=== PATIENT | female | born 1960 ===

== ENCOUNTER 2022-01-05 20:17 | Outpatient (REF) | payer MEDICAID, SELFPAY ==
[2022-01-05 19:06] LABS: Anion Gap 7.1 mmol/L (3-11); BUN 18 mg/dL (7-18); CO2 27.9 mmol/L (21.0-32.0); CREATININE 1.2 mg/dL (0.55-1.02); Calcium 9.2 mg/dL (8.5-10.1); Chloride 105 mmol/L (98-107); Estimated GFR 45.98 (mL/min/1.73m2); Glucose 112 mg/dL (74-106); Potassium 4.3 mmol/L (3.5-5.1); Sodium 140 mmol/L (136-145)
== END 2022-01-05 20:18 | disposition home or self-care (01) ==
LOC: NCHCN 20:17
PROVIDERS: Visit Provider Nurse Practitioner Family
DX: R94.4 Abnormal results of kidney function studies (principal)
CPT/HCPCS: 80048